=== PATIENT | male | born 1965 | race Caucasian/White ===

== ENCOUNTER 2018-08-22 22:34 | Inpatient (IN) | payer MEDICAID ==
[~2018-08-22] VITALS: Ht 175.3 cm; Wt 70.0 kg
[2018-08-22] MEDS ORDERED: ALBUTEROL/IPRATROPIUM 2.5MG/0.5MG, 3 ML ONE (22:53)
[2018-08-22] MEDS ORDERED: ONDANSETRON ODT 4 MG ONE (23:00)
[2018-08-22] MEDS ORDERED: ONDANSETRON ODT 4 MG PO ONE (23:00)
[2018-08-22] MEDS ORDERED: ASPIRIN 81 MG TABLET CHEW PO ONE (23:00)
[2018-08-22] MEDS ORDERED: NITROGLYCERIN SINGLE TAB 0.4 MG SL PRN (23:00)
[2018-08-22] MEDS ORDERED: MORPHINE SULFATE 4 MG/ML, 1ML IVPush PRN (23:00)
[2018-08-22] MEDS ORDERED: ALBUTEROL/IPRATROPIUM 2.5MG/0.5MG, 3 ML NPPB ONE (23:00)
[2018-08-22] MEDS ORDERED: ASPIRIN 81 MG TABLET CHEW ONE (23:00)
[2018-08-22] MEDS ORDERED: SODIUM CHLORIDE FLUSH 10ML SYR IVF ONE (23:00)
[2018-08-22 23:06] LABS: BASOPHILS # (AUTO) 0.08 x10^3/uL (0-0.1); BASOPHILS % (AUTO) 1 % (0-1); EOSINOPHILS # (AUTO) 0.05 x10^3/uL (0-0.4); EOSINOPHILS % (AUTO) 1 % (1-7); LYMPHOCYTES # (AUTO) 2.71 x10^3/uL (1-3.4); LYMPHOCYTES % (AUTO) 49 % (22-44); MD NO; MEAN CORPUSCULAR HEMOGLOBIN 36.2 pg (27.5-34.5); MEAN CORPUSCULAR HGB CONC 34.7 g/dL (33.2-36.2); MEAN CORPUSCULAR VOLUME 104.3 fL (81-97); MEAN PLATELET VOLUME 8.1 fL (7.4-10.4); MONOCYTES # (AUTO) 0.86 x10^3/uL (0.2-0.8); MONOCYTES % (AUTO) 16 % (2-9); NEUTROPHILS # (AUTO) 1.83 x10^3/uL (1.8-6.8); NEUTROPHILS % (AUTO) 33 % (42-75); PLATELET COUNT 145 x10^3/uL (130-400); RED BLOOD COUNT 4.38 x10^6/uL (4.38-5.82)
[2018-08-22] MEDS ORDERED: NITROGLYCERIN SINGLE TAB 0.4 MG SL ONE (23:07)
[2018-08-22 23:15] LABS: ALANINE AMINOTRANSFERASE 96 U/L (12-78); ALBUMIN 3.2 g/dL (3.4-5.0); ANION GAP 10 mmol/L (5-15); CALCIUM 8.3 mg/dL (8.5-10.1); CHLORIDE 104 mmol/L (98-107); CREATININE 0.49 mg/dL (0.7-1.3)
[2018-08-22 23:19] LABS: ALKALINE PHOSPHATASE 93 U/L (45-117); BILIRUBIN,TOTAL 0.2 mg/dL (0.2-1.0); TOTAL PROTEIN 7.7 g/dL (6.4-8.2); TROPONIN I < 0.015 ng/mL (0.000-0.045)
[2018-08-22] MEDS ORDERED: SODIUM CHLORIDE 0.9% 1,000 ML IV ONE (23:53)
[2018-08-23] MEDS ORDERED: SODIUM CHLORIDE FLUSH 10ML SYR IVF PRN
[2018-08-23 01:08] VITALS: BP 137/66
[2018-08-23 02:00] VITALS: BP 137/66
[2018-08-23] MEDS ORDERED: DIPHENHYDRAMINE 50 MG CAPSULE PO PRN (02:00)
[2018-08-23] MEDS ORDERED: CHLORDIAZEPOXIDE 10 MG CAPSULE PO PRN (02:00)
[2018-08-23] MEDS ORDERED: ALUMINUM/MAG/SIMETHICONE 30 ML UDC PO PRN (02:00)
[2018-08-23] MEDS ORDERED: CHLORDIAZEPOXIDE 25 MG CAPSULE PO PRN ×2 (02:00)
[2018-08-23] MEDS ORDERED: NICOTINE 21 MG/24 HR PATCH.TD24 TD ONE (02:00)
[2018-08-23] MEDS ORDERED: ACETAMINOPHEN 325 MG TABLET PO PRN (02:00)
[2018-08-23] MEDS ORDERED: ALBUTEROL/IPRATROPIUM 2.5MG/0.5MG, 3 ML NPPB PRN (02:30)
[2018-08-23] MEDS ORDERED: CEFTRIAXONE 1,000 MG in SODIUM CHLORIDE 0.9% 50 ML IV SCH (02:30)
[2018-08-23] MEDS: SODIUM CHLORIDE 0.9% 1,000 ML IV SCH ×2 (03:00→22:00)
[2018-08-23] MEDS: AZITHROMYCIN 500 MG in SODIUM CHLORIDE 0.9% 250 ML IV SCH (03:51)
[2018-08-23 05:33] LABS: TROPONIN I < 0.015 ng/mL (0.000-0.045)
[2018-08-23 07:04] LABS: ALANINE AMINOTRANSFERASE 88 U/L (12-78); ALBUMIN 3.2 g/dL (3.4-5.0); ANION GAP 10 mmol/L (5-15); CALCIUM 7.9 mg/dL (8.5-10.1); CHLORIDE 108 mmol/L (98-107)
[2018-08-23 07:30] LABS: ALKALINE PHOSPHATASE 90 U/L (45-117); BILIRUBIN,TOTAL 0.2 mg/dL (0.2-1.0); TOTAL PROTEIN 7.6 g/dL (6.4-8.2)
[2018-08-23] MEDS: ALBUTEROL/IPRATROPIUM 2.5MG/0.5MG, 3 ML NPPB SCH ×4 (07:35→19:11)
[2018-08-23 07:54] VITALS: BP 119/73
[2018-08-23] MEDS ORDERED: ALBUTEROL/IPRATROPIUM 2.5MG/0.5MG, 3 ML IPPB PRN (08:00)
[2018-08-23] MEDS: FAMOTIDINE 20 MG TABLET PO SCH ×2 (08:56→21:41)
[2018-08-23] MEDS: POTASSIUM CHLORIDE 20 MEQ, MAGNESIUM SULFATE 1 GM, THIAMINE 200 MG, FOLIC ACID 1 MG, MV... IV SCH (08:56)
[2018-08-23] MEDS: FOLIC ACID 1 MG TABLET PO SCH (08:57)
[2018-08-23] MEDS: MULTIVITAMINS/MINERALS TABLET PO SCH (08:57)
[2018-08-23] MEDS: CHLORDIAZEPOXIDE 25 MG CAPSULE PO PRN ×2 (08:58→16:46)
[2018-08-23 12:09] VITALS: BP 132/82
[2018-08-23 18:00] LABS: AMPHETAMINE SCREEN, URINE Positive (Negative); BARBITURATE SCREEN, URINE Negative (Negative); BENZODIAZEPINE SCREEN, URINE Negative (Negative); CANNABINOID SCREEN, URINE Negative (Negative); COCAINE SCREEN, URINE Negative (Negative); METHADONE SCREEN, URINE Negative (Negative); OPIATE SCREEN, URINE Negative (Negative)
[2018-08-23 20:00] LABS: CLOSTRIDIUM DIFFICILE ANTIGEN NEGATIVE; CLOSTRIDIUM DIFFICILE TOXIN NEGATIVE (Negative)
[2018-08-23 20:07] VITALS: BP 137/84
[2018-08-24 02:12] VITALS: BP 148/86
[2018-08-24] MEDS: CEFTRIAXONE PMX 1GM/50ML 50 ML IV SCH ×2 (02:52→04:21)
[2018-08-24] MEDS: AZITHROMYCIN 500 MG in SODIUM CHLORIDE 0.9% 250 ML IV SCH ×2 (04:15→06:17)
[2018-08-24 04:55] LABS: BASOPHILS # (AUTO) 0.03 x10^3/uL (0-0.1); BASOPHILS % (AUTO) 1 % (0-1); EOSINOPHILS # (AUTO) 0.02 x10^3/uL (0-0.4); EOSINOPHILS % (AUTO) 0 % (1-7); LYMPHOCYTES # (AUTO) 2.03 x10^3/uL (1-3.4); LYMPHOCYTES % (AUTO) 29 % (22-44); MD NO; MEAN CORPUSCULAR HEMOGLOBIN 35.3 pg (27.5-34.5); MEAN CORPUSCULAR HGB CONC 33.8 g/dL (33.2-36.2); MEAN CORPUSCULAR VOLUME 104.3 fL (81-97); MEAN PLATELET VOLUME 8.1 fL (7.4-10.4); MONOCYTES # (AUTO) 0.93 x10^3/uL (0.2-0.8); MONOCYTES % (AUTO) 13 % (2-9); NEUTROPHILS # (AUTO) 4.01 x10^3/uL (1.8-6.8); NEUTROPHILS % (AUTO) 57 % (42-75); PLATELET COUNT 116 x10^3/uL (130-400); RED BLOOD COUNT 3.78 x10^6/uL (4.38-5.82); RED CELL DISTRIBUTION WIDTH 16.3 % (9.4-14.8)
[2018-08-24 04:56] LABS: ALBUMIN 2.7 g/dL (3.4-5.0); ANION GAP 5 mmol/L (5-15); CHLORIDE 108 mmol/L (98-107)
[2018-08-24 05:00] LABS: ALANINE AMINOTRANSFERASE 59 U/L (12-78); ALKALINE PHOSPHATASE 71 U/L (45-117); BILIRUBIN,TOTAL 0.5 mg/dL (0.2-1.0); CREATININE 0.56 mg/dL (0.7-1.3); TOTAL PROTEIN 6.4 g/dL (6.4-8.2)
[2018-08-24] MEDS ORDERED: MAGNESIUM SULFATE PMX 2GM/50ML 50 ML IV ONE (05:00)
[2018-08-24] MEDS: SODIUM CHLORIDE 0.9% 1,000 ML IV SCH ×2 (05:00→21:00)
[2018-08-24] MEDS: ALBUTEROL/IPRATROPIUM 2.5MG/0.5MG, 3 ML NPPB SCH (07:53)
[2018-08-24] MEDS: FAMOTIDINE 20 MG TABLET PO SCH ×2 (07:59→21:16)
[2018-08-24] MEDS: FOLIC ACID 1 MG TABLET PO SCH (07:59)
[2018-08-24] MEDS: MULTIVITAMINS/MINERALS TABLET PO SCH (07:59)
[2018-08-24 08:26] VITALS: BP 142/79
[2018-08-24] MEDS: POTASSIUM CHLORIDE 20 MEQ, MAGNESIUM SULFATE 1 GM, THIAMINE 200 MG, FOLIC ACID 1 MG, MV... IV SCH (08:46)
[2018-08-24 13:30] VITALS: BP 139/82
[2018-08-24 19:57] VITALS: BP 159/65
[2018-08-25 00:53] VITALS: BP 160/90
[2018-08-25] MEDS: SODIUM CHLORIDE 0.9% 1,000 ML IV SCH ×3 (03:40→21:00)
[2018-08-25] MEDS: AZITHROMYCIN 500 MG in SODIUM CHLORIDE 0.9% 250 ML IV SCH (03:51)
[2018-08-25 05:07] LABS: BASOPHILS # (AUTO) 0.05 x10^3/uL (0-0.1); BASOPHILS % (AUTO) 1 % (0-1); EOSINOPHILS # (AUTO) 0.01 x10^3/uL (0-0.4); EOSINOPHILS % (AUTO) 0 % (1-7); LYMPHOCYTES # (AUTO) 2.79 x10^3/uL (1-3.4); LYMPHOCYTES % (AUTO) 42 % (22-44); MD NO; MEAN CORPUSCULAR HEMOGLOBIN 35.8 pg (27.5-34.5); MEAN CORPUSCULAR VOLUME 105.3 fL (81-97); MEAN PLATELET VOLUME 7.9 fL (7.4-10.4); MONOCYTES # (AUTO) 0.77 x10^3/uL (0.2-0.8); MONOCYTES % (AUTO) 12 % (2-9); NEUTROPHILS # (AUTO) 3.03 x10^3/uL (1.8-6.8); NEUTROPHILS % (AUTO) 46 % (42-75); PLATELET COUNT 131 x10^3/uL (130-400); RED BLOOD COUNT 4.02 x10^6/uL (4.38-5.82); RED CELL DISTRIBUTION WIDTH 16.1 % (9.4-14.8)
[2018-08-25 05:22] LABS: ANION GAP 5 mmol/L (5-15); CALCIUM 7.9 mg/dL (8.5-10.1); CHLORIDE 110 mmol/L (98-107); CREATININE 0.54 mg/dL (0.7-1.3)
[2018-08-25 08:00] VITALS: BP 148/73
[2018-08-25] MEDS: FOLIC ACID 1 MG TABLET PO SCH (09:55)
[2018-08-25] MEDS: FAMOTIDINE 20 MG TABLET PO SCH ×2 (09:55→20:22)
[2018-08-25] MEDS: MULTIVITAMINS/MINERALS TABLET PO SCH (09:55)
[2018-08-25] MEDS: POTASSIUM CHLORIDE 20 MEQ, MAGNESIUM SULFATE 1 GM, THIAMINE 200 MG, FOLIC ACID 1 MG, MV... IV SCH (12:03)
[2018-08-25 16:08] VITALS: BP 149/90
[2018-08-25] MEDS: GABAPENTIN 100 MG CAPSULE PO SCH ×2 (16:22→20:22)
[2018-08-25 21:56] VITALS: BP 150/84
[2018-08-26 01:41] VITALS: BP 158/92
[2018-08-26] MEDS: AZITHROMYCIN 500 MG in SODIUM CHLORIDE 0.9% 250 ML IV SCH (04:00)
[2018-08-26 05:10] LABS: ALBUMIN 2.8 g/dL (3.4-5.0); CALCIUM 8.2 mg/dL (8.5-10.1)
[2018-08-26] MEDS: GABAPENTIN 100 MG CAPSULE PO SCH ×3 (05:13→16:17)
[2018-08-26 05:14] LABS: ALANINE AMINOTRANSFERASE 47 U/L (12-78); ALKALINE PHOSPHATASE 69 U/L (45-117); BILIRUBIN,TOTAL 0.4 mg/dL (0.2-1.0); CREATININE 0.44 mg/dL (0.7-1.3); TOTAL PROTEIN 6.6 g/dL (6.4-8.2)
[2018-08-26 05:34] LABS: ANION GAP 9 mmol/L (5-15); CHLORIDE 110 mmol/L (98-107)
[2018-08-26] MEDS: SODIUM CHLORIDE 0.9% 1,000 ML IV SCH ×2 (06:00→14:00)
[2018-08-26 08:00] VITALS: BP 149/97
[2018-08-26] MEDS: FOLIC ACID 1 MG TABLET PO SCH (09:10)
[2018-08-26] MEDS: MULTIVITAMINS/MINERALS TABLET PO SCH (09:10)
[2018-08-26] MEDS: FAMOTIDINE 20 MG TABLET PO SCH (09:11)
[2018-08-26] MEDS: POTASSIUM CHLORIDE 20 MEQ, MAGNESIUM SULFATE 1 GM, THIAMINE 200 MG, FOLIC ACID 1 MG, MV... IV SCH (12:00)
[2018-08-26] MEDS ORDERED: REGADENOSON 0.4 MG/5 ML SYRINGE ONE (12:55)
[2018-08-26 15:30] VITALS: BP 142/85
[2018-08-26] MEDS ORDERED: METH4TAB2 PO (16:36)
[2018-08-26] MEDS ORDERED: ALBU90AE INH (16:36)
== END 2018-08-26 18:32 | disposition home or self-care (01) | DRG 191 ==
LOC: ED 08-23 00:13 → EDIP 08-23 00:36 → 5SO 08-23 01:06
PROVIDERS: ADMIT Internal Medicine; ATTEND Family Medicine
DX: J44.1 Chronic obstructive pulmonary disease with (acute) exacerbation (principal); F10.221 Alcohol dependence with intoxication delirium; R45.851 Suicidal ideations; E44.0 Moderate protein-calorie malnutrition; F17.213 Nicotine dependence, cigarettes, with withdrawal; F15.90 Other stimulant use, unspecified, uncomplicated; Y90.8 Blood alcohol level of 240 mg/100 ml or more; R00.1 Bradycardia, unspecified; R74.0 Nonspecific elevation of levels of transaminase and lactic acid dehydrogenase [LDH]; F32.9 Major depressive disorder, single episode, unspecified; I35.8 Other nonrheumatic aortic valve disorders; D75.89 Other specified diseases of blood and blood-forming organs; E88.09 Other disorders of plasma-protein metabolism, not elsewhere classified; Z68.22 Body mass index [BMI] 22.0-22.9, adult; I25.2 Old myocardial infarction; Z59.0 Homelessness; Z71.41 Alcohol abuse counseling and surveillance of alcoholic; Z23 Encounter for immunization
CPT/HCPCS: 36415; 99285; J7620; 71045; 78452; 80048; 80053; 80307; 82040; 82607; 82746; 83690; 83735; 83880; 84443; 84484; 85025; 87324; 90656; 93005; 93017; 93306; 94640; G0378; J0456; J0696; J2785; J3411; J3475; J3480; Q0162; A9502; C9898; J7030; J7050; J7512

== ENCOUNTER 2018-10-04 15:19 | Emergency (ER) | payer MEDICAID ==
[~2018-10-04] VITALS: Ht 177.8 cm; Wt 75.0 kg
[~2018-10-04 15:19] MED LIST: ALBU90AE INH; METH4TAB2 PO
[2018-10-04] MEDS ORDERED: ALBUTEROL/IPRATROPIUM 2.5MG/0.5MG, 3 ML ONE (15:27)
[2018-10-04 16:00] LABS: BASOPHILS # (AUTO) 0.11 x10^3/uL (0-0.1); BASOPHILS % (AUTO) 2 % (0-1); EOSINOPHILS # (AUTO) 0.02 x10^3/uL (0-0.4); EOSINOPHILS % (AUTO) 0 % (1-7); LYMPHOCYTES # (AUTO) 2.22 x10^3/uL (1-3.4); LYMPHOCYTES % (AUTO) 36 % (22-44); MD NO; MEAN CORPUSCULAR HEMOGLOBIN 35.8 pg (27.5-34.5); MEAN CORPUSCULAR HGB CONC 34.5 g/dL (33.2-36.2); MEAN CORPUSCULAR VOLUME 103.9 fL (81-97); MEAN PLATELET VOLUME 7.2 fL (7.4-10.4); MONOCYTES # (AUTO) 0.68 x10^3/uL (0.2-0.8); MONOCYTES % (AUTO) 11 % (2-9); NEUTROPHILS # (AUTO) 3.23 x10^3/uL (1.8-6.8); NEUTROPHILS % (AUTO) 52 % (42-75); PLATELET COUNT 192 x10^3/uL (130-400); RED BLOOD COUNT 4.89 x10^6/uL (4.38-5.82); RED CELL DISTRIBUTION WIDTH 14.9 % (9.4-14.8)
[2018-10-04] MEDS ORDERED: KETOROLAC 30 MG/1 ML IM ONE (16:00)
[2018-10-04] MEDS ORDERED: KETOROLAC 30 MG/1 ML ONE ×2 (16:06)
[2018-10-04 16:12] LABS: ALBUMIN 3.4 g/dL (3.4-5.0); ANION GAP 10 mmol/L (5-15); CALCIUM 7.9 mg/dL (8.5-10.1); CHLORIDE 103 mmol/L (98-107); CREATININE 0.62 mg/dL (0.7-1.3)
[2018-10-04 16:16] LABS: TROPONIN I < 0.015 ng/mL (0.000-0.045)
[2018-10-04 19:30] VITALS: BP 99/62
== END 2018-10-04 19:53 | disposition home or self-care (01) ==
LOC: ED 19:36
DX: R07.89 Other chest pain (principal); J44.9 Chronic obstructive pulmonary disease, unspecified
CPT/HCPCS: 36415; 71045; 80048; 82040; 83880; 84484; 85025; 93005; 94640; 96372; 99284; J1885

== ENCOUNTER 2018-10-09 17:13 | Emergency (ER) | payer MEDICAID ==
[~2018-10-09] VITALS: Ht 175.3 cm; Wt 72.0 kg
[2018-10-09] MEDS ORDERED: ALBUTEROL/IPRATROPIUM 2.5MG/0.5MG, 3 ML ONE ×2 (17:59→19:45)
[2018-10-09] MEDS: ALBUTEROL/IPRATROPIUM 2.5MG/0.5MG, 3 ML NPPB SCH ×2 (18:08→19:48)
[2018-10-09] MEDS ORDERED: ALBUTEROL SULFATE 2.5 MG/3 ML NPPB ONE (19:30)
[2018-10-09 20:49] VITALS: BP 97/53
== END 2018-10-09 20:59 | disposition home or self-care (01) ==
LOC: ED 20:22
DX: J44.1 Chronic obstructive pulmonary disease with (acute) exacerbation (principal); F10.20 Alcohol dependence, uncomplicated; J45.909 Unspecified asthma, uncomplicated; Z72.9 Problem related to lifestyle, unspecified; Z75.9 Unspecified problem related to medical facilities and other health care; Z59.0 Homelessness; Y90.9 Presence of alcohol in blood, level not specified
CPT/HCPCS: 71046; 94640; 99284; J7512; J7613; J7620

== ENCOUNTER 2018-10-23 13:09 | Emergency (ER) | payer MEDICAID ==
[~2018-10-23] VITALS: Ht 175.3 cm; Wt 72.9 kg
[2018-10-23] MEDS ORDERED: KETOROLAC 30 MG/1 ML IVPush ONE (13:30)
[2018-10-23 13:44] LABS: BASOPHILS # (AUTO) 0.15 x10^3/uL (0-0.1); BASOPHILS % (AUTO) 3 % (0-1); EOSINOPHILS # (AUTO) 0.06 x10^3/uL (0-0.4); EOSINOPHILS % (AUTO) 1 % (1-7); LYMPHOCYTES # (AUTO) 2.48 x10^3/uL (1-3.4); LYMPHOCYTES % (AUTO) 46 % (22-44); MD NO; MEAN CORPUSCULAR HEMOGLOBIN 35.6 pg (27.5-34.5); MEAN CORPUSCULAR HGB CONC 34.4 g/dL (33.2-36.2); MEAN CORPUSCULAR VOLUME 103.5 fL (81-97); MONOCYTES # (AUTO) 0.74 x10^3/uL (0.2-0.8); MONOCYTES % (AUTO) 14 % (2-9); NEUTROPHILS # (AUTO) 1.99 x10^3/uL (1.8-6.8); NEUTROPHILS % (AUTO) 37 % (42-75); PLATELET COUNT 193 x10^3/uL (130-400); RED BLOOD COUNT 4.59 x10^6/uL (4.38-5.82); RED CELL DISTRIBUTION WIDTH 14.3 % (9.4-14.8)
[2018-10-23 13:54] LABS: ALBUMIN 3.5 g/dL (3.4-5.0); ANION GAP 8 mmol/L (5-15); CALCIUM 8.2 mg/dL (8.5-10.1); CHLORIDE 108 mmol/L (98-107); CREATININE 0.58 mg/dL (0.7-1.3)
[2018-10-23 13:58] LABS: TROPONIN I < 0.015 ng/mL (0.000-0.045)
[2018-10-23] MEDS ORDERED: KETOROLAC 30 MG/1 ML ONE (14:56)
[2018-10-23 22:25] VITALS: BP 114/64
== END 2018-10-23 23:18 | disposition home or self-care (01) ==
LOC: ED 13:15
DX: F10.20 Alcohol dependence, uncomplicated (principal); J44.9 Chronic obstructive pulmonary disease, unspecified; I10 Essential (primary) hypertension; F17.200 Nicotine dependence, unspecified, uncomplicated
CPT/HCPCS: 36415; 71045; 71275; 80048; 80307; 82040; 84484; 85025; 85379; 93005; 96374; 99284; J1885

== ENCOUNTER 2018-11-13 17:25 | Emergency (ER) | payer MEDICAID ==
[~2018-11-13] VITALS: Ht 170.2 cm; Wt 70.0 kg
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
--- NOTE | 2018-11-13 18:02 | NUR ---
DR. MCGILL IS AT BEDSIDE.
[2018-11-13 18:22] LABS: BASOPHILS # (AUTO) 0.05 x10^3/uL (0-0.1); BASOPHILS % (AUTO) 1 % (0-1); EOSINOPHILS # (AUTO) 0.05 x10^3/uL (0-0.4); EOSINOPHILS % (AUTO) 1 % (1-7); LYMPHOCYTES # (AUTO) 1.73 x10^3/uL (1-3.4); LYMPHOCYTES % (AUTO) 34 % (22-44); MD NO; MEAN CORPUSCULAR HEMOGLOBIN 36.2 pg (27.5-34.5); MEAN CORPUSCULAR HGB CONC 34.5 g/dL (33.2-36.2); MEAN CORPUSCULAR VOLUME 105.2 fL (81-97); MEAN PLATELET VOLUME 7.7 fL (7.4-10.4); MONOCYTES % (AUTO) 16 % (2-9); NEUTROPHILS # (AUTO) 2.49 x10^3/uL (1.8-6.8); NEUTROPHILS % (AUTO) 49 % (42-75); PLATELET COUNT 158 x10^3/uL (130-400); RED BLOOD COUNT 4.63 x10^6/uL (4.38-5.82); RED CELL DISTRIBUTION WIDTH 14.3 % (9.4-14.8)
[2018-11-13 18:36] LABS: ALANINE AMINOTRANSFERASE 71 U/L (12-78); ALBUMIN 3.3 g/dL (3.4-5.0); ANION GAP 9 mmol/L (5-15); CALCIUM 7.9 mg/dL (8.5-10.1); CHLORIDE 104 mmol/L (98-107); CREATININE 0.61 mg/dL (0.7-1.3)
[2018-11-13 18:40] LABS: ALKALINE PHOSPHATASE 113 U/L (45-117); BILIRUBIN,TOTAL 0.3 mg/dL (0.2-1.0); TOTAL PROTEIN 7.5 g/dL (6.4-8.2); TROPONIN I < 0.015 ng/mL (0.000-0.045)
--- NOTE | 2018-11-13 19:06 | NUR ---
PER DR. MCGILL PT IS TO BE DISCHARGED WHEN AMBULATORY WITHOUT ASSIST. PT SHOWS ETOH INTOXICATION AT 0.330'S. O2 AT 2L/NC PLACED FOR SOME DESATTING WHILE SLEEPING. PT IS ON ALL MONITORS WITH AUDIBLE ALARMS.
--- NOTE | 2018-11-13 19:10 | NUR ---
REPORT TO JASPAL HAYDEN.
--- NOTE | 2018-11-13 19:44 | NUR ---
PT RESTING ON GURNEY WITH EYES CLOSED, DROWSY, AROUSES TO SHAKING ARM AND QUICKLY NODS BACK OFF, EQUAL CHEST RISE/FALL OBSERVED, WILL CONTINUE TO MONITOR.
[2018-11-13 19:46] VITALS: BP 111/71
--- NOTE | 2018-11-13 21:08 | NUR ---
PT A&OX4, ABLE TO AMBULATE IN [place] WITHOUT DIFFICULTY, DENIES FURTHER NEEDS AT THIS TIME
== END 2018-11-13 21:10 | disposition home or self-care (01) ==
LOC: ED 18:00
DX: F10.120 Alcohol abuse with intoxication, uncomplicated (principal); F17.200 Nicotine dependence, unspecified, uncomplicated; I10 Essential (primary) hypertension; J44.9 Chronic obstructive pulmonary disease, unspecified
CPT/HCPCS: 36415; 71045; 80053; 80307; 84484; 85025; 93005; 99284

== ENCOUNTER 2019-05-10 13:52 | Inpatient (IN) | payer MEDICAID ==
[~2019-05-10] VITALS: Ht 176.5 cm; Wt 84.9 kg
[~2019-05-10 13:52] MED LIST changes: +ALBU8.5H8 INH; +DIPH25TA28 PO; +FOLI-17 PO; +MULT1TAB60 PO; +RANI150T60 PO; +THIA100T67 PO
[2019-05-10] MEDS ORDERED: SODIUM CHLORIDE FLUSH 10ML SYR IVF ONE (14:00)
[2019-05-10] MEDS ORDERED: PLEASE ENTER HEIGHT AND WEIGHT MC SCH (14:00)
--- NOTE | 2019-05-10 14:04 | NUR ---
53 Y/O MALE BIB AMBULANCE WITH C/O CP. PER REPORT PT STATED HE HAD CP THAT WAS REPRODUCABLE AND WAS WORSE WITH INHALATION. PT POOR HISTORIAN. PT WAS GIVEN 324 MG ASA AND 250 mg NS. PIV ESTABLISHED, 18G RAC. PT PLACED INTO GOWN AND ON CONT PULSE OX, NIBP, HAND TRUCKER. NO C/O N/V/D, TRAUMA, SYNCOPE.
--- NOTE | 2019-05-10 14:13 | NUR ---
PT STATED HE TAKES MEDICATIONS AT HOME, BUT DOESN'T REMEMBER THE NAME
[2019-05-10 14:25] LABS: MEAN CORPUSCULAR HEMOGLOBIN 37.3 pg (27.5-34.5); MEAN CORPUSCULAR HGB CONC 33.8 g/dL (33.2-36.2); MEAN CORPUSCULAR VOLUME 110.5 fL (81-97); MEAN PLATELET VOLUME 8.3 fL (7.4-10.4); PLATELET COUNT 134 x10^3/uL (130-400); RED BLOOD COUNT 4.01 x10^6/uL (4.38-5.82); RED CELL DISTRIBUTION WIDTH 21.3 % (9.4-14.8)
[2019-05-10] MEDS ORDERED: ALBUTEROL/IPRATROPIUM 2.5MG/0.5MG, 3 ML NPPB SCH (14:30)
[2019-05-10 14:37] LABS: ALANINE AMINOTRANSFERASE 47 U/L (12-78); ALBUMIN 3.5 g/dL (3.4-5.0); ANION GAP 8 mmol/L (5-15); CALCIUM 8.2 mg/dL (8.5-10.1); CHLORIDE 106 mmol/L (98-107); CREATININE 0.48 mg/dL (0.7-1.3)
[2019-05-10 14:41] LABS: ALKALINE PHOSPHATASE 86 U/L (45-117); BILIRUBIN,TOTAL 0.5 mg/dL (0.2-1.0); TROPONIN I < 0.015 ng/mL (0.000-0.045)
[2019-05-10] MEDS ORDERED: methylPREDNISolone SOD SUCC 125 MG/2 ML ONE (14:44)
[2019-05-10] MEDS ORDERED: ALBUTEROL/IPRATROPIUM 2.5MG/0.5MG, 3 ML ONE (14:50)
--- NOTE | 2019-05-10 14:50 | NUR ---
pt resting on gurney. PT EDUCATED REGARDING POC. PT VERBALIZED UNDERSTANDING REGARDING POC. NO ACUTE DISTRES NOTED. NO NEEDS REQUESTED AT THIS TIME.
[2019-05-10 14:58] LABS: BASOPHILS # (AUTO) 0.06 x10^3/uL (0-0.1); BASOPHILS % (AUTO) 1 % (0-1); EOSINOPHILS # (AUTO) 0.05 x10^3/uL (0-0.4); EOSINOPHILS % (AUTO) 1 % (1-7); LYMPHOCYTES # (AUTO) 2.03 x10^3/uL (1-3.4); LYMPHOCYTES % (AUTO) 40 % (22-44); MD MORPH REVIEW ONLY; MONOCYTES # (AUTO) 0.65 x10^3/uL (0.2-0.8); MONOCYTES % (AUTO) 13 % (2-9); NEUTROPHILS # (AUTO) 2.24 x10^3/uL (1.8-6.8); NEUTROPHILS % (AUTO) 45 % (42-75)
[2019-05-10] MEDS ORDERED: methylPREDNISolone SOD SUCC 125 MG/2 ML IVP ONE (15:00)
[2019-05-10 15:01] LABS: ANISOCYTOSIS 1+; OVALOCYTES 1+
[2019-05-10 15:02] LABS: INTERNATIONAL NORMALIZED RATIO 0.91 (0.93-1.1); PROTHROMBIN TIME 9.6 Seconds (9.6-11.5)
[2019-05-10 15:03] LABS: <PLATELET ESTIMATE> ADEQUATE; TARGET CELLS 1+
[2019-05-10 15:04] LABS: LARGE PLATELETS 1+
[2019-05-10] MEDS ORDERED: SODIUM CHLORIDE FLUSH 10ML SYR IVF PRN (16:00)
--- NOTE | 2019-05-10 16:05 | NUR ---
PT RESTING ON GURNEY. PT VERBALIZED UNDERSTANDING REGARDING POC. PT UNDERSTANDS HE WILL BE ADMITTED. NO ACUTE DISTRESS NOTED. NO NEEDS REQUESTED AT THIS TIME.
[2019-05-10] MEDS ORDERED: SODIUM CHLORIDE 0.9% 1,000 ML IV SCH (16:57)
[2019-05-10] MEDS ORDERED: ACETAMINOPHEN 325 MG TABLET PO PRN (17:00)
[2019-05-10] MEDS ORDERED: METHOCARBAMOL 500 MG TABLET PO PRN (17:00)
[2019-05-10] MEDS ORDERED: hydrALAzine 20 MG/ML, 1ML IVPush PRN (17:00)
--- NOTE | 2019-05-10 17:28 | NUR ---
PT FINISHED DIET TRAY. PT RESTING ON GURNEY. NO ACUTE DISTRESS NOTED. NO NEEDS REQUESTED AT THIS TIME.
--- NOTE | 2019-05-10 17:31 | NUR ---
REPORT TO CATRACHO BAUMAN. ALL QUESTIONS ANSWERED
[2019-05-10 17:47] LABS: TROPONIN I < 0.015 ng/mL (0.000-0.045)
--- NOTE | 2019-05-10 17:51 | NUR ---
PT TRANSFERRED TO FLOOR. PT LEFT WITH ALL PERSONAL BELONGINGS.
[2019-05-10 17:53] LABS: THYROID STIMULATING HORMONE 0.558 mIU/L (0.358-3.740)
[2019-05-10 17:57] LABS: HEMOGLOBIN A1C 4.9 % (4.2-6.3)
[2019-05-10] MEDS: ALBUTEROL/IPRATROPIUM 2.5MG/0.5MG, 3 ML NPPB SCH ×2 (19:00→23:00)
[2019-05-10 19:18] VITALS: BP 144/84
[2019-05-10] MEDS: BUDESONIDE 0.5 MG/2 ML INHA NPPB SCH (21:00)
[2019-05-10] MEDS: DOXYCYCLINE 100MG TABLET PO SCH (21:04)
[2019-05-10] MEDS: MONTELUKAST 10 MG TABLET PO SCH (21:04)
[2019-05-10] MEDS: GUAIFENESIN ER 600 MG TABLET PO SCH (21:04)
[2019-05-10] MEDS: NICOTINE 21 MG/24 HR PATCH.TD24 TD SCH (21:05)
[2019-05-10] MEDS: HEPARIN 5,000 UNITS/ML, 1ML SQ SCH (21:05)
[2019-05-11] LABS: TROPONIN I < 0.015 ng/mL (0.000-0.045)
[2019-05-11 00:35] VITALS: BP 151/88
[2019-05-11] MEDS: ALBUTEROL/IPRATROPIUM 2.5MG/0.5MG, 3 ML NPPB SCH ×6 (02:21→22:15)
[2019-05-11 04:41] VITALS: BP 160/92
[2019-05-11 05:08] LABS: MEAN CORPUSCULAR HEMOGLOBIN 37.3 pg (27.5-34.5); MEAN CORPUSCULAR HGB CONC 33.9 g/dL (33.2-36.2); MEAN CORPUSCULAR VOLUME 109.8 fL (81-97); MEAN PLATELET VOLUME 8.6 fL (7.4-10.4); PLATELET COUNT 130 x10^3/uL (130-400); RED BLOOD COUNT 4.11 x10^6/uL (4.38-5.82); RED CELL DISTRIBUTION WIDTH 21.4 % (9.4-14.8)
[2019-05-11] MEDS: HEPARIN 5,000 UNITS/ML, 1ML SQ SCH ×3 (05:19→21:51)
[2019-05-11 05:20] LABS: ALBUMIN 3.8 g/dL (3.4-5.0); ANION GAP 10 mmol/L (5-15); CALCIUM 9.1 mg/dL (8.5-10.1); CHLORIDE 105 mmol/L (98-107)
[2019-05-11 05:27] LABS: ALANINE AMINOTRANSFERASE 49 U/L (12-78); ALKALINE PHOSPHATASE 95 U/L (45-117); BILIRUBIN,TOTAL 0.6 mg/dL (0.2-1.0); CHOL/HDL RATIO 1.9; CHOLESTEROL, TOTAL 191 mg/dL (140-239); CREATININE 0.82 mg/dL (0.7-1.3); HDL CHOL % 52 % (26-37); HDL CHOLESTEROL (DIRECT) 99 mg/dL (40-60); LDL CHOLESTEROL,CALCULATED 82 mg/dL (54-169); LDL/HDL RATIO 0.8 (0.5-3.0); TOTAL PROTEIN 7.7 g/dL (6.4-8.2); TRIGLYCERIDES 51 mg/dL (50-200); VLDL CHOLESTEROL 10 mg/dL (0-25)
[2019-05-11 05:39] LABS: BASOPHILS # (AUTO) 0.02 x10^3/uL (0-0.1); BASOPHILS % (AUTO) 1 % (0-1); EOSINOPHILS % (AUTO) 0 % (1-7); LYMPHOCYTES # (AUTO) 0.34 x10^3/uL (1-3.4); LYMPHOCYTES % (AUTO) 14 % (22-44); MD SCAN; MONOCYTES # (AUTO) 0.12 x10^3/uL (0.2-0.8); MONOCYTES % (AUTO) 5 % (2-9); NEUTROPHILS # (AUTO) 1.88 x10^3/uL (1.8-6.8); NEUTROPHILS % (AUTO) 80 % (42-75)
[2019-05-11 07:45] VITALS: BP 147/87
[2019-05-11] MEDS: BUDESONIDE 0.5 MG/2 ML INHA NPPB SCH ×2 (08:42→18:35)
[2019-05-11] MEDS ORDERED: FLUTICASONE/VILANTEROL 200-25MCG/INH INH SCH (09:00)
[2019-05-11] MEDS: DOXYCYCLINE 100MG TABLET PO SCH ×2 (10:38→21:51)
[2019-05-11] MEDS: GUAIFENESIN ER 600 MG TABLET PO SCH ×2 (10:39→21:51)
[2019-05-11 13:08] VITALS: BP 143/77
[2019-05-11] MEDS ORDERED: LORazepam 0.5MG TABLET PO PRN (13:30)
[2019-05-11] MEDS ORDERED: LORazepam 1MG TABLET PO PRN ×4 (13:30)
[2019-05-11] MEDS ORDERED: LORazepam 2 MG/ML, 1ML IV PRN ×5 (13:30)
[2019-05-11] MEDS: CHLORDIAZEPOXIDE 10 MG CAPSULE PO SCH ×2 (17:20→21:51)
[2019-05-11] MEDS: SODIUM CHLORIDE 0.9% 1,000 ML IV SCH (17:20)
[2019-05-11 19:37] VITALS: BP 126/67
[2019-05-11] MEDS: MONTELUKAST 10 MG TABLET PO SCH (21:51)
[2019-05-11] MEDS: NICOTINE 21 MG/24 HR PATCH.TD24 TD SCH (22:11)
[2019-05-12 01:26] VITALS: BP 126/76
[2019-05-12] MEDS: ALBUTEROL/IPRATROPIUM 2.5MG/0.5MG, 3 ML NPPB SCH ×2 (02:40→07:00)
[2019-05-12] MEDS: SODIUM CHLORIDE 0.9% 1,000 ML IV SCH (05:41)
[2019-05-12] MEDS: HEPARIN 5,000 UNITS/ML, 1ML SQ SCH (05:41)
[2019-05-12] MEDS: BUDESONIDE 0.5 MG/2 ML INHA NPPB SCH (06:00)
[2019-05-12 07:33] LABS: ALANINE AMINOTRANSFERASE 39 U/L (12-78); ALBUMIN 3.5 g/dL (3.4-5.0); ANION GAP 6 mmol/L (5-15); CALCIUM 8.9 mg/dL (8.5-10.1); CHLORIDE 106 mmol/L (98-107)
[2019-05-12 07:36] LABS: ALKALINE PHOSPHATASE 72 U/L (45-117); BILIRUBIN,TOTAL 1.1 mg/dL (0.2-1.0); TOTAL PROTEIN 6.8 g/dL (6.4-8.2)
[2019-05-12 08:12] VITALS: BP 116/85
[2019-05-12] MEDS ORDERED: BUDE10.2 INH (08:24)
[2019-05-12] MEDS ORDERED: NICO-487 TD (08:24)
[2019-05-12] MEDS ORDERED: PRED20TA PO (08:24)
[2019-05-12] MEDS ORDERED: THIA100T67 PO (08:24)
[2019-05-12] MEDS ORDERED: ALBU8.5H8 INH (08:24)
[2019-05-12] MEDS ORDERED: FOLI-17 PO (08:24)
[2019-05-12] MEDS ORDERED: RANI150T60 PO (08:24)
[2019-05-12] MEDS ORDERED: DOXY100T PO (08:24)
[2019-05-12] MEDS ORDERED: GUAI600T31 PO (08:24)
[2019-05-12] MEDS ORDERED: MONT10TA9 PO (08:24)
[2019-05-12] MEDS: DOXYCYCLINE 100MG TABLET PO SCH (09:44)
[2019-05-12] MEDS: CHLORDIAZEPOXIDE 10 MG CAPSULE PO SCH (09:44)
[2019-05-12] MEDS: GUAIFENESIN ER 600 MG TABLET PO SCH (09:44)
[2019-05-12] MEDS ORDERED: SODIUM CHLORIDE 0.9%, 500ML IVBOLUS ONE (11:00)
[2019-05-12] MEDS ORDERED: ALBUTEROL/IPRATROPIUM 2.5MG/0.5MG, 3 ML NPPB SCH (15:00)
== END 2019-05-12 13:20 | disposition home or self-care (01) | DRG 189 ==
LOC: ED 15:48 → EDIP 17:26 → 4WST 17:49 → DCLOUNGE 05-12 12:50
PROVIDERS: ADMIT Internal Medicine; ATTEND Internal Medicine
DX: J96.01 Acute respiratory failure with hypoxia (principal); J44.1 Chronic obstructive pulmonary disease with (acute) exacerbation; F10.20 Alcohol dependence, uncomplicated; F17.210 Nicotine dependence, cigarettes, uncomplicated; R55 Syncope and collapse; W18.39XA Other fall on same level, initial encounter; I10 Essential (primary) hypertension; Z59.0 Homelessness; Y93.89 Activity, other specified; Y92.410 Unspecified street and highway as the place of occurrence of the external cause; Y99.8 Other external cause status
CPT/HCPCS: 36415; 99291; J7620; J7626; 71045; 80053; 80061; 83036; 83605; 83735; 83880; 84100; 84443; 84484; 85025; 85610; 85730; 87040; 93005; 94640; G0378; J1644; J2930; J7030; J7040; J7512

== ENCOUNTER 2019-06-19 15:43 | Emergency (ER) | payer MEDICAID ==
[~2019-06-19] VITALS: Ht 175.3 cm; Wt 75.0 kg
[2019-06-19 22:35] VITALS: BP 102/71
== END 2019-06-19 23:07 | disposition home or self-care (01) ==
LOC: ED 16:04
DX: F10.220 Alcohol dependence with intoxication, uncomplicated (principal); R00.2 Palpitations; I10 Essential (primary) hypertension; J44.9 Chronic obstructive pulmonary disease, unspecified; F17.200 Nicotine dependence, unspecified, uncomplicated; Y90.9 Presence of alcohol in blood, level not specified
CPT/HCPCS: 36415; 71045; 80048; 80307; 82040; 83735; 84484; 93005; 99284

== ENCOUNTER 2019-11-13 19:33 | Emergency (ER) | payer MEDICAID ==
[~2019-11-13] VITALS: Ht 177.8 cm; Wt 75.0 kg
[~2019-11-13 19:33] MED LIST changes: +BUDE10.2 INH; +DOXY100T PO; +GUAI600T31 PO; +MONT10TA9 PO; +NICO-487 TD; +PRED20TA PO
[2019-11-13 19:37] VITALS: BP 144/80
--- NOTE | 2019-11-13 20:10 | NUR ---
SEEN BY PA WITH ORDER FOR DISCHARGE.
--- NOTE | 2019-11-13 20:35 | NUR ---
PATIENT DISCHARGED WITH PRESCRIPTION AND INSTRUCTION. VERBALIZED UNDERSTANDING.
== END 2019-11-13 20:36 | disposition home or self-care (01) ==
LOC: ED 19:50
DX: B85.0 Pediculosis due to Pediculus humanus capitis (principal); B85.1 Pediculosis due to Pediculus humanus corporis; B85.3 Phthiriasis; F10.10 Alcohol abuse, uncomplicated; F17.210 Nicotine dependence, cigarettes, uncomplicated; Z72.9 Problem related to lifestyle, unspecified; Z75.9 Unspecified problem related to medical facilities and other health care; Z91.14 Patient's other noncompliance with medication regimen; Z59.0 Homelessness
CPT/HCPCS: 99283

== ENCOUNTER 2019-12-08 18:18 | Emergency (ER) | payer MEDICAID ==
[~2019-12-08] VITALS: Ht 177.8 cm; Wt 100.0 kg
--- NOTE | 2019-12-08 19:13 | NUR ---
ATTEMPTED TO DISCHARGE PATIENT; PATIENT IS NOT WILLING TO LEAVE DECON ROOM. SECURITY CALLED.
--- NOTE | 2019-12-08 19:15 | NUR ---
THAIS REFUSED VITAL SIGNS UPON DISCHARGE.
== END 2019-12-08 19:21 | disposition home or self-care (01) ==
LOC: ED 18:50
DX: L29.9 Pruritus, unspecified (principal); I10 Essential (primary) hypertension; J44.0 Chronic obstructive pulmonary disease with (acute) lower respiratory infection
CPT/HCPCS: 99283

== ENCOUNTER 2020-01-30 18:23 | Emergency (ER) | payer MEDICAID ==
[~2020-01-30] VITALS: Ht 175.3 cm; Wt 72.0 kg
[~2020-01-30 18:23] MED LIST changes: +MONT10TA11 PO; -MONT10TA9 PO
--- NOTE | 2020-01-30 18:45 | NUR ---
[facility] PT IS A HOMELESS MAN WHO CALLED [facility] DUE TO BEING COVERED IN BUGS, AND INCREASE IN SOB. PT IS COVERED FROM HEAD TO TOE WITH LICE/BED BUGS. RN REMOVES ALL PATIENT'S CLOTHING AND PLACES THEM INTO BIOHAZARD BAG AND SEALS FOR PROTECTION. PT IS PLACED INTO A GOWN, PUT ON MONITOR, GIVEN CALL LIGHT AND OFFERED BLANKET. PT IS LOW GRADE FEVER AND WARM, REFUSES NEED FOR BLANKET. ASSESSMENT PERFORMED. PT IS VERY DIRTY AND DESPERATELY NEEDS A SHOWER, BUT DECONTAMINATION ROOM IN ED IS CLOSED DUE TO COVID TRIAGE.
[2020-01-30 19:18] LABS: BASOPHILS # (AUTO) 0.11 x10^3/uL (0-0.1); BASOPHILS % (AUTO) 3 % (0-1); EOSINOPHILS # (AUTO) 0.26 x10^3/uL (0-0.4); EOSINOPHILS % (AUTO) 7 % (1-7); LYMPHOCYTES # (AUTO) 1.54 x10^3/uL (1-3.4); LYMPHOCYTES % (AUTO) 40 % (22-44); MD NO; MEAN CORPUSCULAR HEMOGLOBIN 35.7 pg (27.5-34.5); MEAN CORPUSCULAR HGB CONC 34.1 g/dL (33.2-36.2); MEAN CORPUSCULAR VOLUME 104.8 fL (81-97); MEAN PLATELET VOLUME 8.1 fL (7.4-10.4); MONOCYTES # (AUTO) 0.68 x10^3/uL (0.2-0.8); MONOCYTES % (AUTO) 18 % (2-9); NEUTROPHILS # (AUTO) 1.23 x10^3/uL (1.8-6.8); NEUTROPHILS % (AUTO) 32 % (42-75); PLATELET COUNT 177 x10^3/uL (130-400); RED BLOOD COUNT 4.25 x10^6/uL (4.38-5.82)
--- NOTE | 2020-01-30 19:18 | NUR ---
IV PLACED WITH ONE ATTEMPT AND LAB DRAWN. PT TOLERATED PROCEDURE WELL. DURING ASSESSMENT, RN NOTICES THAT PATIENT HAS SWELLING TO BILATERAL EYES. PT HAS A DIFFICULT TIME OPENING EYES COMPLETELY. PALPATION REVEALS SUB Q EMPHYSEMA TO BILATERAL ORBITAL AREAS. MD INFORMED. CHEST XRAY DONE WITHOUT DIFF.
[2020-01-30 19:29] LABS: ALANINE AMINOTRANSFERASE 97 U/L (12-78); ALBUMIN 3.1 g/dL (3.4-5.0); ANION GAP 8 mmol/L (5-15); CALCIUM 8.1 mg/dL (8.5-10.1); CHLORIDE 104 mmol/L (98-107); CREATININE 0.64 mg/dL (0.7-1.3)
[2020-01-30 19:33] LABS: ALKALINE PHOSPHATASE 96 U/L (45-117); BILIRUBIN,TOTAL 0.3 mg/dL (0.2-1.0); TOTAL PROTEIN 7.3 g/dL (6.4-8.2)
[2020-01-30 20:33] VITALS: BP 112/74
--- NOTE | 2020-01-30 20:36 | NUR ---
RN TO ASSESS PATIENT AND SEE IF PATIENT CAN BE TAKEN OFF THE OXYGEN. OXYGEN REMOVED AND RN COMPLETED ANOTHER ASSESSMENT, ENSURING THAT THE OXYGEN SATURATION READINGS ARE ACCURATE. O2 LEVEL DROPPED TO 84%, AND WITH SOLID WAVEFORM, PT SATS NEVER HIT 90% AFTER 10 MINUTES. RN REPLACED OXYGEN AT 2L PER NC AND SATS ARE NOW IN THE LOW 90'S. PO PREDNISONE GIVEN TO PATIENT. TEMP DECREASED TO 98.3 FROM 99 ON INITIAL ASSESSMENT. PROVIDER INFORMED OF PATIENT STATUS.
--- NOTE | 2020-01-30 21:11 | NUR ---
REPORT RECEIVED FROM CATRACHO MIGUEL. [facility]
--- NOTE | 2020-01-30 21:41 | NUR ---
PT UP FOR DC. PT PROVIDED NEW CLOTHES FOR DC
== END 2020-01-30 22:11 | disposition home or self-care (01) ==
LOC: ED 19:42
DX: J44.1 Chronic obstructive pulmonary disease with (acute) exacerbation (principal); F10.229 Alcohol dependence with intoxication, unspecified; F17.210 Nicotine dependence, cigarettes, uncomplicated; I10 Essential (primary) hypertension
CPT/HCPCS: 36415; 71045; 80053; 83880; 85025; 93005; 99285; J7512

== ENCOUNTER 2020-03-30 21:58 | Inpatient (IN) | payer MEDICAID ==
[~2020-03-30] VITALS: Ht 182.9 cm; Wt 63.1 kg
--- NOTE | 2020-03-30 22:13 | NUR ---
DB RN: PT HUBERT MASON AFTER EXPERIENCING A FALL FROM A [place] CHAIR ONTO THE [place]WN. NO LOC, NO OBVIOUS TRAUMA. HEAVY ETOH USE TODAY. PRODUCTIVE COUGH ALSO PRESENT WITH, RUNNY NOSE AND "FLU LIKE SYMPTOMS" X SEVERAL DAYS. PT DENIES ANY COMPLAINTS. REPORTS A HX OF CHRONIC PAIN. ALL MONITORING EQUIPMENT APPLIED. ALL VITALS STABLE. REPORT TO PRIMARY, CATRACHO HUDSON
[2020-03-30] MEDS ORDERED: ALBUTEROL/IPRATROPIUM 2.5MG/0.5MG, 3 ML NPPB ONE (22:30)
[2020-03-30] MEDS ORDERED: ALBUTEROL/IPRATROPIUM 2.5MG/0.5MG, 3 ML ONE (22:32)
[2020-03-30 22:35] LABS: BASOPHILS # (AUTO) 0.12 x10^3/uL (0-0.1); BASOPHILS % (AUTO) 2 % (0-1); EOSINOPHILS # (AUTO) 0.07 x10^3/uL (0-0.4); EOSINOPHILS % (AUTO) 1 % (1-7); LYMPHOCYTES # (AUTO) 1.52 x10^3/uL (1-3.4); LYMPHOCYTES % (AUTO) 29 % (22-44); MD NO; MEAN CORPUSCULAR HEMOGLOBIN 34.3 pg (27.5-34.5); MEAN CORPUSCULAR HGB CONC 33.2 g/dL (33.2-36.2); MEAN CORPUSCULAR VOLUME 103.3 fL (81-97); MEAN PLATELET VOLUME 7.6 fL (7.4-10.4); MONOCYTES # (AUTO) 0.84 x10^3/uL (0.2-0.8); MONOCYTES % (AUTO) 16 % (2-9); NEUTROPHILS # (AUTO) 2.65 x10^3/uL (1.8-6.8); NEUTROPHILS % (AUTO) 51 % (42-75); PLATELET COUNT 217 x10^3/uL (130-400); RED BLOOD COUNT 4.77 x10^6/uL (4.38-5.82); RED CELL DISTRIBUTION WIDTH 14.7 % (9.4-14.8)
--- NOTE | 2020-03-30 22:45 | NUR ---
Report received from CATRACHO Hilario. This RN to assume care.
[2020-03-30 22:48] LABS: ALBUMIN 2.9 g/dL (3.4-5.0); ANION GAP 5 mmol/L (5-15); CALCIUM 8.4 mg/dL (8.5-10.1); CHLORIDE 101 mmol/L (98-107); CREATININE 0.48 mg/dL (0.7-1.3)
[2020-03-31] MEDS ORDERED: AZITHROMYCIN 500 MG in SODIUM CHLORIDE 0.9% 250 ML IV ONE (00:30)
[2020-03-31] MEDS ORDERED: CEFTRIAXONE PMX 1GM/50ML 50 ML IVPB ONE (00:30)
[2020-03-31] MEDS ORDERED: ALBUTEROL/IPRATROPIUM 2.5MG/0.5MG, 3 ML NPPB ONE (00:30)
[2020-03-31] MEDS ORDERED: SODIUM CHLORIDE 0.9% 1,000 ML IV SCH (00:33)
--- NOTE | 2020-03-31 00:37 | NUR ---
BREAK RN: PT RESTING ON GURNEY, NO DISTRESS NOTED. PT TOLERATING WELL.
--- NOTE | 2020-03-31 00:47 | NUR ---
TP RN: chava Kenney at [facility], pt denied
[2020-03-31] MEDS ORDERED: GUAIFENESIN/DM 200-20MG, 10ML UDC PO PRN (01:00)
[2020-03-31] MEDS ORDERED: ONDANSETRON ODT 4 MG PO PRN (01:00)
[2020-03-31] MEDS ORDERED: LORazepam 2 MG/ML, 1ML IVPush PRN (01:00)
[2020-03-31] MEDS ORDERED: ERYTHROMYCIN OPHTH 0.5%, 1GM EACHEYE ONE (01:00)
[2020-03-31] MEDS ORDERED: POLYETHYLENE GLYCOL 17 GM PACKET PO PRN (01:00)
[2020-03-31] MEDS ORDERED: BISACODYL 10 MG SUPP PR PRN (01:00)
[2020-03-31] MEDS ORDERED: ACETAMINOPHEN 325 MG TABLET PO PRN (01:00)
[2020-03-31] MEDS ORDERED: CHLORDIAZEPOXIDE 25 MG CAPSULE PO PRN (01:00)
--- NOTE | 2020-03-31 01:10 | NUR ---
Report given to CATRACHO Mc. Patient to be transferred to room 442.
[2020-03-31 02:08] VITALS: BP 104/62
[2020-03-31] MEDS: NICOTINE 21 MG/24 HR PATCH.TD24 TD SCH (02:29)
[2020-03-31] MEDS: HEPARIN 5,000 UNITS/ML, 1ML SQ SCH ×3 (02:29→15:24)
[2020-03-31] MEDS: methylPREDNISolone SOD SUCC 125 MG/2 ML IVPush SCH ×4 (02:30→23:40)
[2020-03-31] MEDS: CEFTRIAXONE PMX 1GM/50ML 50 ML IV SCH (02:30)
[2020-03-31] MEDS: DOXYCYCLINE 100 MG in DEXTROSE 5% 250 ML IV SCH ×2 (02:58→15:24)
[2020-03-31 05:58] LABS: BASOPHILS % (AUTO) 0 % (0-1); EOSINOPHILS # (AUTO) 0.02 x10^3/uL (0-0.4); EOSINOPHILS % (AUTO) 0 % (1-7); LYMPHOCYTES # (AUTO) 0.34 x10^3/uL (1-3.4); LYMPHOCYTES % (AUTO) 8 % (22-44); MD NO; MEAN CORPUSCULAR HEMOGLOBIN 34.7 pg (27.5-34.5); MEAN CORPUSCULAR HGB CONC 33.6 g/dL (33.2-36.2); MEAN CORPUSCULAR VOLUME 103.2 fL (81-97); MEAN PLATELET VOLUME 7.6 fL (7.4-10.4); MONOCYTES # (AUTO) 0.05 x10^3/uL (0.2-0.8); MONOCYTES % (AUTO) 1 % (2-9); NEUTROPHILS # (AUTO) 3.72 x10^3/uL (1.8-6.8); NEUTROPHILS % (AUTO) 90 % (42-75); PLATELET COUNT 191 x10^3/uL (130-400); RED BLOOD COUNT 4.58 x10^6/uL (4.38-5.82); RED CELL DISTRIBUTION WIDTH 14.7 % (9.4-14.8)
[2020-03-31 06:03] LABS: ANION GAP 7 mmol/L (5-15); CHLORIDE 105 mmol/L (98-107)
[2020-03-31 07:27] VITALS: BP 111/64
[2020-03-31 07:33] LABS: ALBUMIN 2.7 g/dL (3.4-5.0)
[2020-03-31 07:42] LABS: D-DIMER 1.08 ug/mlFEU (0.00-0.52); INTERNATIONAL NORMALIZED RATIO 0.97 (0.93-1.1); PROTHROMBIN TIME 10.3 Seconds (9.6-11.5)
[2020-03-31 07:58] LABS: BILIRUBIN, DIRECT 0.2 mg/dL (0.1-0.2); BILIRUBIN,INDIRECT 0.1 mg/dL (0.0-2.0); BILIRUBIN,TOTAL 0.3 mg/dL (0.2-1.0); TOTAL PROTEIN 7.5 g/dL (6.4-8.2)
[2020-03-31] MEDS: MULTIVITAMINS/MINERALS TABLET PO SCH (08:13)
[2020-03-31] MEDS: FOLIC ACID 1 MG TABLET PO SCH (08:14)
[2020-03-31] MEDS: THIAMINE 100MG TABLET PO SCH ×2 (08:14→21:06)
[2020-03-31 08:17] LABS: C-REACTIVE PROTEIN, QUANT 4.7 mg/dL (0.02-0.49)
[2020-03-31] MEDS: SENNA/DOCUSATE TABLET PO SCH (08:20)
[2020-03-31 11:44] LABS: CHOL/HDL RATIO 2.9; LDL/HDL RATIO 1.7 (0.5-3.0)
[2020-03-31] MEDS: ALBUTEROL HFA 90 MCG/SPRAY INH SCH ×4 (12:43→23:40)
[2020-03-31 14:34] VITALS: BP 132/93
[2020-03-31 19:23] VITALS: BP 139/84
[2020-03-31] MEDS: ATORVASTATIN 40 MG TABLET PO SCH (21:06)
[2020-04-01 00:19] VITALS: BP 133/78
[2020-04-01] MEDS: CEFTRIAXONE PMX 1GM/50ML 50 ML IV SCH (02:21)
[2020-04-01] MEDS: SODIUM CHLORIDE 0.9% 1,000 ML IV SCH ×2 (02:21→22:50)
[2020-04-01] MEDS: NICOTINE 21 MG/24 HR PATCH.TD24 TD SCH (02:22)
[2020-04-01] MEDS: ALBUTEROL HFA 90 MCG/SPRAY INH SCH ×5 (02:22→20:38)
[2020-04-01] MEDS: HEPARIN 5,000 UNITS/ML, 1ML SQ SCH ×3 (02:22→17:21)
[2020-04-01] MEDS: DOXYCYCLINE 100 MG in DEXTROSE 5% 250 ML IV SCH (02:56)
[2020-04-01] MEDS: ASPIRIN 81 MG TABLET EC PO SCH (06:24)
[2020-04-01 08:00] VITALS: BP 134/89
[2020-04-01] MEDS: MULTIVITAMINS/MINERALS TABLET PO SCH (08:25)
[2020-04-01] MEDS: THIAMINE 100MG TABLET PO SCH ×2 (08:25→20:38)
[2020-04-01] MEDS: FOLIC ACID 1 MG TABLET PO SCH (08:25)
[2020-04-01] MEDS: SENNA/DOCUSATE TABLET PO SCH (08:25)
[2020-04-01] MEDS: methylPREDNISolone SOD SUCC 125 MG/2 ML IVPush SCH ×2 (08:25→17:21)
[2020-04-01 13:42] VITALS: BP 149/99
[2020-04-01 16:25] VITALS: BP 150/106
[2020-04-01] MEDS: DOXYCYCLINE 100MG TABLET PO SCH ×2 (17:21→22:49)
[2020-04-01 19:21] VITALS: BP 144/86
[2020-04-01] MEDS: ATORVASTATIN 40 MG TABLET PO SCH (20:38)
[2020-04-02] MEDS: methylPREDNISolone SOD SUCC 125 MG/2 ML IVPush SCH ×2 (00:19→09:31)
[2020-04-02] MEDS: ALBUTEROL HFA 90 MCG/SPRAY INH SCH ×3 (00:19→09:31)
[2020-04-02 00:21] VITALS: BP 158/92
[2020-04-02] MEDS: HEPARIN 5,000 UNITS/ML, 1ML SQ SCH ×2 (02:45→09:35)
[2020-04-02] MEDS: NICOTINE 21 MG/24 HR PATCH.TD24 TD SCH (02:45)
[2020-04-02] MEDS: ASPIRIN 81 MG TABLET EC PO SCH (06:10)
[2020-04-02] MEDS ORDERED: MULTIVITAMINS/MINERALS TABLET PO SCH (07:00)
[2020-04-02 07:37] VITALS: BP 150/94
[2020-04-02] MEDS ORDERED: AMLODIPINE 5 MG TABLET PO SCH (09:00)
[2020-04-02] MEDS: DOXYCYCLINE 100MG TABLET PO SCH (09:31)
[2020-04-02] MEDS: FOLIC ACID 1 MG TABLET PO SCH (09:31)
[2020-04-02] MEDS: THIAMINE 100MG TABLET PO SCH (09:31)
[2020-04-02] MEDS: SENNA/DOCUSATE TABLET PO SCH (09:31)
== END 2020-04-02 10:52 | disposition left against medical advice (07) | DRG 193 ==
LOC: ED 03-31 00:06 → EDIP 03-31 00:25 → 4NW 03-31 01:13 → 3N 04-01 16:08
PROVIDERS: ADMIT Internal Medicine; ATTEND Hospitalist
DX: J18.9 Pneumonia, unspecified organism (principal); J96.01 Acute respiratory failure with hypoxia; E87.1 Hypo-osmolality and hyponatremia; I50.30 Unspecified diastolic (congestive) heart failure; D75.89 Other specified diseases of blood and blood-forming organs; F10.220 Alcohol dependence with intoxication, uncomplicated; J43.9 Emphysema, unspecified; F17.200 Nicotine dependence, unspecified, uncomplicated; I11.0 Hypertensive heart disease with heart failure; Z20.828 Contact with and (suspected) exposure to other viral communicable diseases; R73.9 Hyperglycemia, unspecified; Z53.29 Procedure and treatment not carried out because of patient's decision for other reasons; I25.10 Atherosclerotic heart disease of native coronary artery without angina pectoris; T38.0X5A Adverse effect of glucocorticoids and synthetic analogues, initial encounter; Z59.0 Homelessness; Z86.73 Personal history of transient ischemic attack (TIA), and cerebral infarction without residual deficits; I25.2 Old myocardial infarction; Y92.89 Other specified places as the place of occurrence of the external cause
CPT/HCPCS: 36415; 70450; 71045; 80048; 80061; 80074; 80076; 82040; 82607; 83615; 83735; 84100; 84145; 84443; 85025; 85379; 85610; 86140; 87070; 87205; G0378; J0696; J1644; J7060; J2060; J2930; J7030; J7512; U0001-CS

== ENCOUNTER 2020-06-28 12:46 | Emergency (ER) | payer MEDICAID ==
[~2020-06-28] VITALS: Ht 175.3 cm; Wt 64.5 kg
[~2020-06-28 12:46] MED LIST changes: +MULT-449 PO; -MULT1TAB60 PO
[2020-06-28 12:50] VITALS: BP 101/76
--- NOTE | 2020-06-28 13:24 | NUR ---
PT TO XR W TECH
--- NOTE | 2020-06-28 14:00 | NUR ---
PT IS CLEANING HISSELF W SOAP AND WATER AT THE BEDSIDE. SHOWER DECLINED
== END 2020-06-28 14:36 | disposition home or self-care (01) ==
LOC: ED 13:19
DX: S70.01XA Contusion of right hip, initial encounter (principal); J44.9 Chronic obstructive pulmonary disease, unspecified; I10 Essential (primary) hypertension; F17.200 Nicotine dependence, unspecified, uncomplicated; V09.9XXA Pedestrian injured in unspecified transport accident, initial encounter; Y93.89 Activity, other specified; Y92.89 Other specified places as the place of occurrence of the external cause; Y99.8 Other external cause status
CPT/HCPCS: 99283

== ENCOUNTER 2020-07-08 12:12 | Emergency (ER) | payer MEDICAID ==
[~2020-07-08] VITALS: Ht 175.3 cm; Wt 70.5 kg
[2020-07-08 12:20] VITALS: BP 83/59
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
--- NOTE | 2020-07-08 12:48 | NUR ---
D/C INSTRUCTIONS & REFERRALS FOR F/U PROVIDED TO PT, PT VERBALIZES UNDERSTANDING. ASSISTED OUT OF ED VIA WC.
== END 2020-07-08 12:49 | disposition home or self-care (01) ==
LOC: ED 12:30
DX: S80.01XA Contusion of right knee, initial encounter (principal); S70.01XA Contusion of right hip, initial encounter; I10 Essential (primary) hypertension; F17.200 Nicotine dependence, unspecified, uncomplicated; J44.9 Chronic obstructive pulmonary disease, unspecified; W19.XXXA Unspecified fall, initial encounter; Y93.89 Activity, other specified; Y92.488 Other paved roadways as the place of occurrence of the external cause; Y99.8 Other external cause status
CPT/HCPCS: 99283

== ENCOUNTER 2020-07-08 16:38 | Emergency (ER) | payer MEDICAID ==
[~2020-07-08] VITALS: Ht 176.5 cm; Wt 64.3 kg
[2020-07-08 16:40] VITALS: BP 88/59
--- NOTE | 2020-07-08 16:59 | NUR ---
PT TO XR VIA [facility]ITUS.
--- NOTE | 2020-07-08 18:04 | NUR ---
PT ASKED, "CAN'T I JUST STAY HERE TONIGHT?" EXPLAINED TO PT THAT THERE IS NO MEDICAL REASON FOR HIM TO STAY IN THE ER OR THE HOSPITAL. D/C INSTRUCTIONS & F/U APPT RV'WD WITH PT, HE VERBALIZES UNDERSTANDING. AMBULATED OUT OF ED WITH HIS PERSONAL CANE WITHOUT DIFFICULTY.
== END 2020-07-08 18:13 | disposition home or self-care (01) ==
LOC: ED 16:55
DX: G89.29 Other chronic pain (principal); M25.551 Pain in right hip; I10 Essential (primary) hypertension; J44.9 Chronic obstructive pulmonary disease, unspecified; F17.200 Nicotine dependence, unspecified, uncomplicated
CPT/HCPCS: 99283

== ENCOUNTER 2020-08-09 20:40 | Inpatient (IN) | payer MEDICAID ==
[~2020-08-09] VITALS: Ht 175.3 cm; Wt 67.3 kg
--- NOTE | 2020-08-09 20:48 | NUR ---
BIBA FOR C/O CP X "SEVERAL WEEKS" AND COUGH X "SEVERAL YEARS." UPON EMS ARRIVAL, PT WAS NOTED TO HAVE O2 SATS IN THE 80S% AND WAS PUT ON 2L O2 NC. UPON ARRIVAL TO ED, PT IS 96% ON RA. PT ADMITS +ETOH THIS EVENING. HX OF COPD. BGL 96. PT AAOX4, VSS. PT CONNECTED TO CARDIAC AND VS MONITORS, EKG OBTAINED, AND PT PROVIDED WITH WARM BLANKETS. PENDING ED PROVIDER EVALUATION.
[2020-08-09] MEDS ORDERED: ALBUTEROL SULFATE 2.5 MG/3 ML ONE (21:17)
[2020-08-09] MEDS ORDERED: ALBUTEROL SULFATE 2.5 MG/3 ML NPPB ONE (21:30)
[2020-08-09 21:42] LABS: BASOPHILS # (AUTO) 0.11 x10^3/uL (0-0.1); BASOPHILS % (AUTO) 2 % (0-1); EOSINOPHILS % (AUTO) 9 % (1-7); LYMPHOCYTES # (AUTO) 2.14 x10^3/uL (1-3.4); LYMPHOCYTES % (AUTO) 46 % (22-44); MD NO; MEAN CORPUSCULAR HEMOGLOBIN 36.4 pg (27.5-34.5); MEAN CORPUSCULAR HGB CONC 34.1 g/dL (33.2-36.2); MEAN PLATELET VOLUME 8.3 fL (7.4-10.4); MONOCYTES # (AUTO) 0.63 x10^3/uL (0.2-0.8); MONOCYTES % (AUTO) 14 % (2-9); NEUTROPHILS # (AUTO) 1.39 x10^3/uL (1.8-6.8); NEUTROPHILS % (AUTO) 30 % (42-75); PLATELET COUNT 160 x10^3/uL (130-400); RED BLOOD COUNT 4.25 x10^6/uL (4.38-5.82); RED CELL DISTRIBUTION WIDTH 14.6 % (9.4-14.8)
[2020-08-09 21:54] LABS: ALBUMIN 3.4 g/dL (3.4-5.0); ANION GAP 5 mmol/L (5-15); CALCIUM 8.6 mg/dL (8.5-10.1); CHLORIDE 106 mmol/L (98-107); CREATININE 0.58 mg/dL (0.7-1.3)
[2020-08-09 21:58] LABS: TROPONIN I < 0.015 ng/mL (0.000-0.045)
--- NOTE | 2020-08-09 22:08 | NUR ---
PT NOTED TO DROP O2 SATS TO 85% ON RA. REAPPLIED 2 L O2 NC AND O2 SAT INCREASED TO 93%
--- NOTE | 2020-08-09 22:32 | NUR ---
TP RN: PT WITH [employer] [place]. CALLED [facility], REFUSED PT
[2020-08-10] MEDS ORDERED: PIPERONYL BUTOXIDE/PYRETHRINS SHAMPOO TP SCH
[2020-08-10 00:31] VITALS: BP 105/69
[2020-08-10] MEDS ORDERED: NITROGLYCERIN 0.4 MG BOTTLE (25 TABS) SL PRN (03:30)
[2020-08-10] MEDS ORDERED: PROMETHAZINE 25 MG/ML, 1ML IM PRN (03:30)
[2020-08-10] MEDS ORDERED: ENALAPRILAT 1.25 MG/ML, 2ML IVPush PRN (03:30)
[2020-08-10] MEDS ORDERED: NICOTINE 21 MG/24 HR PATCH.TD24 ONE (05:06)
[2020-08-10] MEDS: ASPIRIN 325 MG TABLET EC PO SCH (05:13)
[2020-08-10] MEDS: LORazepam 2 MG/ML, 1ML IVPush PRN ×2 (05:13→12:36)
[2020-08-10] MEDS: POTASSIUM CHLORIDE 20 MEQ, MAGNESIUM SULFATE 2 GM, THIAMINE 200 MG, MVI ADULT 10 ML, FO... IV SCH ×2 (05:14→13:24)
[2020-08-10] MEDS: NICOTINE 21 MG/24 HR PATCH.TD24 TD SCH (05:14)
[2020-08-10 07:00] VITALS: BP 109/75
[2020-08-10] MEDS: DOXYCYCLINE 100MG TABLET PO SCH ×2 (10:43→22:19)
[2020-08-10 13:15] VITALS: BP 140/97
[2020-08-10] MEDS ORDERED: ALBUTEROL HFA 90 MCG/SPRAY INH PRN (15:00)
[2020-08-10 18:39] VITALS: BP 147/83
[2020-08-11 00:27] VITALS: BP 185/90
[2020-08-11] MEDS: POTASSIUM CHLORIDE 20 MEQ, MAGNESIUM SULFATE 2 GM, THIAMINE 200 MG, MVI ADULT 10 ML, FO... IV SCH ×2 (05:43→14:22)
[2020-08-11] MEDS: ASPIRIN 325 MG TABLET EC PO SCH (05:43)
[2020-08-11 09:27] VITALS: BP 117/84
[2020-08-11] MEDS: NICOTINE 21 MG/24 HR PATCH.TD24 TD SCH (10:41)
[2020-08-11] MEDS: DOXYCYCLINE 100MG TABLET PO SCH ×2 (10:41→21:48)
[2020-08-11 19:36] VITALS: BP 128/88
[2020-08-12 00:42] VITALS: BP 136/87
[2020-08-12] MEDS: ASPIRIN 325 MG TABLET EC PO SCH (05:50)
[2020-08-12] MEDS: POTASSIUM CHLORIDE 20 MEQ, MAGNESIUM SULFATE 2 GM, THIAMINE 200 MG, MVI ADULT 10 ML, FO... IV SCH (05:50)
[2020-08-12 08:50] VITALS: BP 133/89
[2020-08-12] MEDS: NICOTINE 21 MG/24 HR PATCH.TD24 TD SCH (08:55)
[2020-08-12] MEDS: DOXYCYCLINE 100MG TABLET PO SCH (08:55)
[2020-08-12] MEDS ORDERED: PRED10TA PO (11:01)
[2020-08-12] MEDS ORDERED: DOXY100T PO (11:01)
[2020-08-12] MEDS ORDERED: SALM50DI INH (11:01)
[2020-08-12 13:35] VITALS: BP 137/86
[2020-08-17] MEDS ORDERED: PIPERONYL BUTOXIDE/PYRETHRINS SHAMPOO TP ONE (05:00)
== END 2020-08-12 15:41 | disposition home or self-care (01) | DRG 189 ==
LOC: ED 21:36 → INTOOBSV 22:30 → OBSVTOIN 22:30 → 4NE 22:30 → INTOOBSV 08-10 12:42 → OBSVTOIN 08-10 12:42 → 3N 08-11 13:42
PROVIDERS: ADMIT Family Medicine; ATTEND Family Medicine
DX: J96.21 Acute and chronic respiratory failure with hypoxia (principal); J44.1 Chronic obstructive pulmonary disease with (acute) exacerbation; F10.239 Alcohol dependence with withdrawal, unspecified; Z59.0 Homelessness; Z99.81 Dependence on supplemental oxygen; F17.210 Nicotine dependence, cigarettes, uncomplicated; I25.2 Old myocardial infarction; Z86.73 Personal history of transient ischemic attack (TIA), and cerebral infarction without residual deficits; B85.2 Pediculosis, unspecified; F15.10 Other stimulant abuse, uncomplicated; Z66 Do not resuscitate; D75.89 Other specified diseases of blood and blood-forming organs; Y90.9 Presence of alcohol in blood, level not specified
CPT/HCPCS: 36415; 99285; J7042; J7613; 71045; 80048; 82040; 82607; 84443; 84484; 85025; 93005; G0378; J3411; J3475; J3480; J2060; J7512

== ENCOUNTER 2020-08-27 20:59 | Emergency (ER) | payer MEDICAID ==
[~2020-08-27] VITALS: Ht 175.3 cm; Wt 70.0 kg
[~2020-08-27 20:59] MED LIST changes: +PRED10TA PO; +SALM50DI INH
[2020-08-27 21:02] VITALS: BP 126/75
== END 2020-08-27 21:26 | disposition home or self-care (01) ==
LOC: ED 21:20
DX: F10.10 Alcohol abuse, uncomplicated (principal); R07.89 Other chest pain; R05 Cough; R55 Syncope and collapse; I10 Essential (primary) hypertension; F17.200 Nicotine dependence, unspecified, uncomplicated; Y90.0 Blood alcohol level of less than 20 mg/100 ml
CPT/HCPCS: 93005; 99283

== ENCOUNTER 2020-10-13 01:59 | Emergency (ER) | payer MEDICAID ==
[~2020-10-13] VITALS: Ht 175.3 cm; Wt 68.0 kg
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
[2020-10-13] MEDS ORDERED: ACETAMINOPHEN 325 MG TABLET PO ONE (02:30)
--- NOTE | 2020-10-13 03:15 | NUR ---
provided with warm blanket
[2020-10-13] MEDS ORDERED: ACETAMINOPHEN 325 MG TABLET ONE (03:17)
[2020-10-13 04:39] VITALS: BP 103/71
== END 2020-10-13 04:41 | disposition home or self-care (01) ==
LOC: ED 02:36
DX: M54.6 Pain in thoracic spine (principal); F10.10 Alcohol abuse, uncomplicated; R05 Cough; I10 Essential (primary) hypertension; J44.9 Chronic obstructive pulmonary disease, unspecified; F17.210 Nicotine dependence, cigarettes, uncomplicated; Z72.9 Problem related to lifestyle, unspecified; Y90.0 Blood alcohol level of less than 20 mg/100 ml
CPT/HCPCS: 71045; 99283; 99406

== ENCOUNTER 2020-11-03 18:25 | Emergency (ER) | payer MEDICAID ==
[~2020-11-03] VITALS: Ht 177.8 cm; Wt 74.0 kg
[~2020-11-03 18:25] MED LIST changes: -MONT10TA11 PO; +MONT10TA96 PO; -NICO-487 TD; +NICO-587 TD
--- NOTE | 2020-11-03 19:28 | NUR ---
pt resting in gurney, on monitors, pt slurring speech, a/ox4. no needs at this time
--- NOTE | 2020-11-03 19:50 | NUR ---
attempted ekg on patient, pt shivering and unable to get clear ekg photo, erp aware will attempt after warming patient
--- NOTE | 2020-11-03 22:20 | NUR ---
attepmted to get patient up to ambulate, pt unsteady, unable to ambulate with home walker at this time. will continue to monitor and reassess
[2020-11-04 00:30] VITALS: BP 102/64
== END 2020-11-04 00:42 | disposition home or self-care (01) ==
LOC: ED 21:53
DX: G31.2 Degeneration of nervous system due to alcohol (principal); R05 Cough; I10 Essential (primary) hypertension; J44.9 Chronic obstructive pulmonary disease, unspecified; F17.200 Nicotine dependence, unspecified, uncomplicated
CPT/HCPCS: 71045; 93005; 99285

== ENCOUNTER 2020-11-25 14:12 | Emergency (ER) | payer MEDICAID ==
[~2020-11-25] VITALS: Ht 175.3 cm; Wt 75.0 kg
[2020-11-25] MEDS ORDERED: GABA600T7 PO (14:21)
[2020-11-25] MEDS ORDERED: ALBU0.63 NEB (14:21)
--- NOTE | 2020-11-25 14:32 | NUR ---
OKAY BY JACK TO PROVIDE PT WITH FOOD. TECH AT BEDSIDE IRRAGATING WOUND.
--- NOTE | 2020-11-25 14:51 | NUR ---
PA AT BEDSIDE.
--- NOTE | 2020-11-25 14:57 | NUR ---
REPORT RECEIVED FROM CATRACHO HALLMAN FOR TRANSFER OF PATIENT CARE.
--- NOTE | 2020-11-25 14:58 | NUR ---
REPORT TO CATRACHO SINGH TO ASSUME PRIMARY CARE OF PT.
[2020-11-25 15:04] VITALS: BP 98/65
--- NOTE | 2020-11-25 15:48 | NUR ---
Patient given discharge instructions and they have confirmed that they understand the instructions. Patient stable and ambulatory with steady gait from ED with all belongings.
== END 2020-11-25 15:49 | disposition home or self-care (01) ==
LOC: ED 15:30
DX: S01.91XA Laceration without foreign body of unspecified part of head, initial encounter (principal); I10 Essential (primary) hypertension; J44.9 Chronic obstructive pulmonary disease, unspecified; F17.210 Nicotine dependence, cigarettes, uncomplicated; X58.XXXA Exposure to other specified factors, initial encounter; Y93.89 Activity, other specified; Y92.89 Other specified places as the place of occurrence of the external cause; Y99.8 Other external cause status
CPT/HCPCS: 12051; 99284; 99406

== ENCOUNTER 2021-01-31 09:21 | Emergency (ER) | payer MEDICAID ==
[~2021-01-31] VITALS: Ht 175.3 cm; Wt 80.0 kg
[~2021-01-31 09:21] MED LIST changes: +ALBU0.63 NEB; -FOLI-17 PO; +FOLI1TAB32 PO; +GABA600T7 PO; +MONT10TA17 PO; -MONT10TA96 PO
--- NOTE | 2021-01-31 09:50 | NUR ---
BIB EMS AFTER BYSTANDER CALLED, PATIENT FOUND TO HAVE AMS, EMPTY ALCOHOL BOTTLES FOUND NEXT HIM, SMELLS OF ETOH. RECENTLY DISCHARGED FROM [facility] FOR COPD EXCERBATION. PATIENT ASLEEP AT THIS TIME. RESPIRATINS EVEN AND UNLABORED. ATTACHED TO MONITORS, NADN. POLLY WILL CONTINUE TO MONITOR.
--- NOTE | 2021-01-31 12:11 | NUR ---
PATIENT ALSEEP IN BED, AROUSES TO PHYSICAL STIMULATION WITH VOICE AND OPENS EYES, PT QUICK TO DRIFT BACK TO SLEEP. VSS. NADN. WILL CONTINUE TO MONITOR
[2021-01-31] MEDS ORDERED: SODIUM CHLORIDE 0.9% 1,000ML IVBOLUS ONE (13:30)
--- NOTE | 2021-01-31 13:37 | NUR ---
PATIENT HYPOTENSIVE AND TACHYCARDIC HR 115'S SBP 74, PIV AND IV BOLUS STARTED AT ORDERD. WILL CONTINUE TO MONITOR.
--- NOTE | 2021-01-31 13:39 | NUR ---
PATIENT DRIFTING IN AND OUT OF SLEEP,
--- NOTE | 2021-01-31 14:12 | NUR ---
BREAK RN- MEAL PROVIDED. PT RESTING IN BED
[2021-01-31 15:20] VITALS: BP 109/68
--- NOTE | 2021-01-31 15:21 | NUR ---
patient able to sit on edge of bed, dress self, and walk.
--- NOTE | 2021-01-31 15:31 | NUR ---
Patient given discharge instructions and they have confirmed that they understand the instructions. Patient ambulatory with steady gait.
== END 2021-01-31 15:32 | disposition home or self-care (01) ==
LOC: ED 09:53
DX: F10.220 Alcohol dependence with intoxication, uncomplicated (principal); Z72.9 Problem related to lifestyle, unspecified; J44.9 Chronic obstructive pulmonary disease, unspecified; I10 Essential (primary) hypertension; Y90.0 Blood alcohol level of less than 20 mg/100 ml
CPT/HCPCS: 96360; 99285; J7030